=== PATIENT | female | born 1960 | race Caucasian/White ===

== ENCOUNTER 2018-02-06 07:27 | Day surgery (SDC) | payer MEDICARE ==
[2018-02-06] MEDS ORDERED: NA CHLORIDE 0.9% 500 ML ONE (08:38)
--- OUTSIDE RECORDS SUMMARY | 2018-02-06 09:06 | XMS REPORT | Clinical Summary ---
:1960 Author Organization [facility] Address [address] [place] [address] Phone Care Team Providers Name Role Phone Unavailable Primary Care Provider Unavailable Allergies No Known Allergies Current Medications Prescription Sig. Disp. Refills Start Date End Date Status exemestane (AROMASIN) 25 mg Take 25 mg by Active tabletIndications: prevention mouth daily. of breast cancer in high risk women venlafaxine (EFFEXOR) 75 MG Take 75 mg by Active tablet mouth daily. ondansetron (ZOFRAN) 4 MG Take 4 mg by Active tablet mouth 2 (two) times daily as needed for Nausea. capecitabine (XELODA) 500 MG Take by mouth 2 Active tablet (two) times daily. pravastatin (PRAVACHOL) 40 MG Take 40 mg by Active tablet mouth daily. meloxicam (MOBIC) 7.5 MG Take 7.5 mg by Active tablet mouth daily. pantoprazole (PROTONIX) 40 MG Take 40 mg by Active tablet mouth daily. hydrochlorothiazide Take 12.5 mg by Active (HYDRODIURIL) 12.5 MG tablet mouth daily. 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
[2018-02-06 09:07] VITALS: BMI 23.3
[2018-02-06 13:21] VITALS: BP 143/67; TEMP 97.9; O2SAT 99
[2018-02-06 15:20] LABS: Hematocrit 30.3 % (36.0-45.0)
== END 2018-02-06 15:05 | disposition home or self-care (01) ==
LOC: DS 07:27
PROVIDERS: ATTEND Internal Medicine Medical Oncology
PROC: 30233N1 Transfusion of Nonautologous Red Blood Cells into Peripheral Vein, Percutaneous Approach (ICD-10-PCS; principal; 2018-02-06)
DX: C50.919 Malignant neoplasm of unspecified site of unspecified female breast (principal); D63.0 Anemia in neoplastic disease
CPT/HCPCS: 36415; 36430; 85014; 85018; 86850; 86900; 86901; P9016 ×2

== ENCOUNTER 2018-03-05 18:17 | Emergency (ER) | payer MEDICARE ==
--- OUTSIDE RECORDS SUMMARY | 2018-03-05 18:21 | XMS REPORT | Clinical Summary ---
:1960 Author Organization [facility] Address [address] [place] [address] Phone Care Team Providers Name Role Phone [...] Not on file Results Not on fileafter 03/04/2017
[2018-03-05] MEDS ORDERED: IPRATROPIUM BROM 0.5MG/2.5ML ONE (19:17)
[2018-03-05] MEDS ORDERED: ALBUTEROL 2.5 MG/3 ML NEB SOL ONE (19:17)
--- NOTE | 2018-03-05 20:16 | RAD REPORT ---
EXAM DESCRIPTION: RAD - Chest Pa And Lat (2 Views) - 03/05/2018 8:07 pm CLINICAL HISTORY: SOB Chest pain. COMPARISON: Chest Single View dated 06/27/2017; Chest Single View dated 01/04/2017; Chest Single View dated 09/12/2016; Chest Single View dated 06/09/2016Chest Single View dated 06/27/2017; Chest Single V iew dated 01/04/2017; Chest Single View dated 09/12/2016; Chest Single View dated 06/09/2016; Chest Abdo men Pelvis W Cont dated 04/10/2017 FINDINGS: A small to moderate right pleural effusion is suspected. Mild interstitial pulmonary edema is present. The heart is mildly enlarged in size. Extensive blastic osseous metastatic disease noted .
[2018-03-05] MEDS ORDERED: FENTANYL CITR 100 MCG/2 ML ONE (20:17)
[2018-03-05 20:32] LABS: Protime INR 1.23
[2018-03-05 20:50] LABS: ALT/SGPT 54 U/L (12-78); AST/SGOT 297 U/L (15-37); Albumin 2.1 g/dL (3.4-5.0); Alkaline Phosphatase 1097 U/L (45-117); BUN Blood Urea Nitrogen 11 mg/dL (7-18); Bicarbonate 26 mmol/L (21-32); Bilirubin Direct 0.9 mg/dL (0-0.2); Bilirubin Total 1.3 mg/dL (0.2-1.0); CKMB Creatine Kinase MB < 1.0 ng/mL (0.3-3.6); Creatine Phosphokinase 51 U/L (26-192); Glucose Level 113 mg/dL (74-106); Magnesium 1.7 mg/dL (1.8-2.4); NT PRO-BNP 466 pg/mL (<125); Potassium 3.7 mmol/L (3.5-5.1); Sodium Level 135 mmol/L (136-145)
[2018-03-05 20:59] LABS: Absolute Lymphocytes (CBC) 1.8 K/uL (0.7-4.9); Absolute Monocytes 0.6 K/uL (0.1-1.3); Basophils % 1.2 % (0-1.3); Eosinophils % 1.5 % (0-4.4); Hematocrit 25.1 % (36.0-45.0); Lymphocytes % 40.1 % (15.3-44.8); MCH 30.9 pg (27.0-35.0); MCV 92.6 fL (80-100); MPV 7.6 fL (7.6-11.3); Monocytes % 12.7 % (3.3-12.3); RBC Red Blood Cell Count 2.71 M/uL (3.86-4.86)
[2018-03-05 21:39] LABS: Platelet Estimate DECR; Urine White Blood Cell Casts DIFF
[2018-03-05 21:43] LABS: Anisocytosis 2+; Blood Morphology Comment NOTED (NOT SEEN); Polychromasia 1+
--- NOTE | 2018-03-05 22:00 | RAD REPORT ---
EXAM DESCRIPTION: CT - Chest For Pe Angio - 03/05/2018 9:49 pm CLINICAL HISTORY: Chest pain. SOB COMPARISON: Thorax W/ Con dated 04/01/2016Thorax W/ Con dated 04/01/2016; Thorax W/ Con dated 6 TECHNIQUE: CT angiogram of the pulmonary arteries was performed with MIP. All CT scans are performed using dose optimization technique as appropriate and may include automated exposure control or mA/KV adjustment according to patient size. FINDINGS: No evidence of pulmonary thromboembolism. No acute aortic finding demonstrated. Interstitial prominence bilaterally likely indicates mild interstitial pulmonary edema or interstitia l pneumonia. Moderate bilateral pleural effusions noted. An enlarged lymph node is noted in the AP window region m easuring 10 mm. Extensive blastic bony metastasis. Prominent fatty liver is present with multiple liver metastases ponce spected. IMPRESSION: No evidence of pulmonary thromboembolism. Moderate bilateral pleural effusions with mild interstitial pulmonary edema versus interstitial pneum onia. Extensive bony metastatic disease. Incompletely assessed liver metastatic disease also noted.
[2018-03-05] MEDS ORDERED: CEFTRIAXONE/SWI 1gm 1 GM/10 ML SYR ONE (22:21)
[2018-03-05] MEDS ORDERED: FUROSEMIDE 20 MG/ 2ML VIAL ONE (22:21)
[2018-03-05 22:25] LABS: Urine Blood NEGATIVE (NEG); Urine Glucose NEGATIVE (NEG); Urine Protein NEGATIVE (NEG); Urine Specific Gravity <1.005 (1.005-1.030)
[2018-03-05] MEDS ORDERED: HYDROCODONE/APAP 5/325 MG TAB ONE (22:32)
[2018-03-05 22:58] LABS: Urine Bacteria >50 /HPF (<20); Urine Culture Reflex Order REFLEXED; Urine RBC NONE SEEN /HPF (NONE SEEN)
--- NOTE | 2018-03-05 22:58 | ER ---
Nurse's Notes [facility] Name: Kailee Lyle Age: 57 yrs Sex: Female : 1960 Arrival Date: 03/05/2018 Time: 18:20 Bed 7 Private MD: Diagnosis: Shortness of breath;Weakness-General;Urinary tract infection, site not specified;Bandemia Presentation: 03/05 18:25 Presenting complaint: Patient states: i just cant breathe good and not feeling good; hj denies nausea and vomiting, reports fever; history of brain ca; pt on hospice;. Transition of care: patient was not received from another setting of care. Onset of symptoms was March 05, 2018. Risk Assessment: Do you want to hurt yourself or someone else? Patient reports no desire to harm self or others. Initial Sepsis Screen: Does the patient meet any 2 criteria? No. Patient's initial sepsis screen is negative. Does the patient have a suspected source of infection? No. Patient's initial sepsis screen is negative. Care prior to arrival: None. 18:25 Method Of Arrival: Ambulatory 18:25 Acuity: JOANNE 3 hj Triage Assessment: 18:28 General: Appears in no apparent distress. uncomfortable, Behavior is calm, cooperative, hj appropriate for age. Pain: Denies pain. Historical: - Allergies: 18:27 NKA; hj - Home Meds: 18:27 hydrocodone-acetaminophen 5-325 mg Oral tab 1 tab every 6 hours [Active]; morphine 15 hj mg Oral tab 1 tab every 4 hours [Active]; pantoprazole 40 mg Oral grps 1 tab 2 times per day [Active]; venlafaxine 75 mg Oral tab 1 tab once daily. [Active]; - PMHx: 18:27 Brain CA; Cancer, Bone; Cancer, Breast; hernia to right side; Hyperlipidemia; hj Hypertension; - PSHx: 18:27 Mastectomy, Right; Cholecystectomy; hj - Immunization history:: Adult Immunizations up to date. - Social history:: Smoking status: Patient/guardian denies using tobacco, Patient/guardian denies using alcohol. - Ebola Screening: : Patient negative for fever greater than or equal to 101.5 degrees Fahrenheit, and additional compatible Ebola Virus Disease symptoms Patient denies exposure to infectious person Patient denies travel to an Ebola-affected area in the 21 days before illness onset. Screenin:28 Abuse screen: Denies threats or abuse. Denies injuries from another. Nutritional hj screening: No deficits noted. Tuberculosis screening: No symptoms or risk factors identified. Fall Risk None identified. Assessment: 18:38 General: Appears comfortable, slender, Behavior is calm, cooperative, quiet. Pain: ae1 Denies pain. Neuro: Level of Consciousness is awake, alert, obeys commands, Oriented to person, place, time, situation. Neuro: Reports dizziness. Cardiovascular: Heart tones S1 S2 present Patient's skin is warm and dry. Rhythm is regular. Respiratory: Airway is patent Respiratory effort is even, unlabored, Respiratory pattern is regular, symmetrical, Breath sounds are clear bilaterally. GI: Abdomen is round Bowel sounds present X 4 quads. Abd is soft and non tender. : No signs and/or symptoms were reported regarding the genitourinary system. EENT: wears glasses. Derm: Skin is pale. Musculoskeletal: Reports Generalized weakness. 19:00 General: Appears comfortable, Behavior is calm, cooperative. Pain: Denies pain. Neuro: ae1 Level of Consciousness is awake, alert, obeys commands, Oriented to person, place, time, situation, Reports dizziness, weakness generalized. Cardiovascular: Heart tones S1 S2 present Patient's skin is warm and dry. Respiratory: Airway is patent Respiratory effort is even, unlabored, Respiratory pattern is regular, symmetrical, Breath sounds are clear bilaterally. GI: Abdomen is round Bowel sounds present X 4 quads. Abd is soft and non tender X 4 quads. : No signs and/or symptoms were reported regarding the genitourinary system. Derm: Skin is dry, Skin is pale, Skin temperature is warm. Musculoskeletal: Reports generalized weakness. 20:55 Reassessment: Patient and/or family updated on plan of care and expected duration. Pain ea level reassessed. Patient is alert, oriented x 3, equal unlabored respirations, skin warm/dry/pink. 22:27 Reassessment: Spoke with [facility] nurse at [phone] and explained reason why pt fc was here and her options of admission vs going home. She states that pt will not be removed from Hospice for being admitted. Explained this to pt and family. Pt wishes to be discharged tonight. Page PA notified. 22:30 Reassessment: Patient and/or family updated on plan of care and expected duration. Pain ea level reassessed. Patient is alert, oriented x 3, equal unlabored respirations, skin warm/dry/pink. family at bedside. 22:48 Reassessment: Tammy with [facility] notified that pt wants to be discharge and have fc antibiotics at home. Neel DOWLING gave orders for Augmentin 875 mg po bid x 7 days to tammy RN so that they could be ordered and dropped at pts home in the am. Tammy RN asks that pts family notify her when they get home tonight. I will let them know. Vital Signs: 18:29 BP 90 / 51; Pulse 115; Resp 18; Temp 97.8(TE); Pulse Ox 96% on R/A; Weight 50.8 kg; hj Height 5 ft. 4 in. (162.56 cm); Pain 0/10; 18:46 BP 107 / 69 Supine; Pulse 95; Resp 16; Pulse Ox 94% on R/A; ae1 18:48 BP 116 / 84 Sitting; Pulse 101; Resp 17; Pulse Ox 95% on R/A; ae1 18:50 BP 118 / 94; ae1 19:00 BP 112 / 65; Pulse 98; Resp 18; Pulse Ox 97% on R/A; Pain 0/10; ae1 20:55 BP 110 / 55; Pulse 98; Resp 18; Pulse Ox 97% on R/A; ea 22:55 BP 114 / 63; Pulse 88; Resp 18; Temp 97.7(O); Pulse Ox 98% on R/A; Pain 0/10; ea 18:29 Body Mass Index 19.22 (50.80 kg, 162.56 cm) hj 18:50 Patient states she is too weak to stand and immediatley sat on bed. ae1 ED Course: 18:20 Patient arrived in ED. rg4 18:26 Triage completed. hj 18:28 Arm band placed on right wrist. hj 18:28 Patient has correct armband on for positive identification. Placed in gown. Bed in low hj position. Call light in reach. Side rails up X 1. Adult w/ patient. 18:36 [facility] Washburn [facility]. cp 18:36 Jacky Klein MD is Attending Physician. cp 19:29 Elbert Danielson MIRIAM is Primary Nurse. ae1 19:35 Inserted saline lock: 22 gauge in left antecubital area, using aseptic technique. Blood ea collected. 20:07 XRAY Chest Pa And Lat (2 Views) In Process Unspecified. EDMS 20:43 Notified Nurse Practitioner and/or Physician Manager Operations And Procurement of a critical lab result(s), fc lactate of 3.7. 20:[address] vr 21:49 CT Chest For PE Angio In Process Unspecified. EDMS 22:58 No provider procedures requiring assistance completed. ea 23:05 IV discontinued, intact, bleeding controlled, No redness/swelling at site. Pressure ea dressing applied. Administered Medications: 19:08 Drug: Albuterol 2.5 mg Route: Inhalation; ae1 19:08 Drug: AtroVENT Aerosol 0.5 mg Route: Inhalation; ae1 20:26 Drug: fentaNYL (PF) 25 mcg Route: IVP; Site: left antecubital; ea 21:00 Follow up: Response: No adverse reaction ea 22:20 Drug: Lasix 20 mg Route: IVP; Site: left antecubital; ea 22:58 Follow up: Response: No adverse reaction; Marked relief of symptoms ea 22:26 Drug: Rocephin - (cefTRIAXone) 1 grams Route: IVPB; Infused Over: 30 mins; Site: left ea antecubital; 23:00 Follow up: Response: No adverse reaction; IV Status: Completed infusion ea 22:31 Drug: [place] 5 mg-325 mg 1 tabs Route: PO; ea 22:58 Follow up: Response: No adverse reaction; Pain is decreased ea Outcome: 22:57 Discharge ordered by MD. herbert 23:09 Discharged to home via wheelchair, with friend, Instructed to call hospice as soon as ea they arrived home. 23:09 Condition: improved 23:09 Discharge instructions given to patient, Instructed on discharge instructions, follow up and referral plans. medication usage, Demonstrated understanding of instructions, follow-up care, medications, Prescriptions given X 1. 23:13 Patient left the ED. ea Addendum: 03/09/2018 08:13 Addendum: Culture Results: Positive urine culture. Positive blood culture. No further i w action required. Bacteria sensitive to prescribed antibiotic. Signatures: Dispatcher [employer] EDTX Chretien, Eleni, RN Liane Haider RN RN iw Davis, Victoria vr Joaquin, Henry, RN RN hj Page, Corey, PA PA cp Elliott, Andrea, MIRIAM RN aeNelsy Roberto 4 Symone Garduno RN RN ea Corrections: (The following items were deleted from the chart) 03/05 18:28 18:25 Presenting complaint: Patient states: i just cant breathe good and not feeling hj good; denies nausea and vomiting, reports fever; hj 18:31 18:29 Pulse 102bpm; Resp 18bpm; Pulse Ox 96% RA; Temp 97.8F Temporal; 50.8 kg; Height 5 hj ft. 4 in.; BMI: 19.2; Pain 0/10; hj 18:31 18:29 BP 90 / 51; Pulse 102bpm; Resp 18bpm; Pulse Ox 96% RA; Temp 97.8F Temporal; 50.8 hj kg; Height 5 ft. 4 in.; BMI: 19.2; Pain 0/10; hj
--- NOTE | 2018-03-05 22:58 | EDPHYS ---
Physician Documentation [facility] Name: Kailee Lyle Age: 57 yrs Sex: Female : 1960 Arrival Date: 03/05/2018 Time: 18:20 Bed 7 Private MD: ED Physician Jacky Klein HPI: 03/05 18:47 This 57 yrs old Female presents to ER via Ambulatory with complaints of NOT cp FEELING WELL. 18:47 The patient has shortness of breath with light activity. Onset: The symptoms/episode cp began/occurred gradually, and became worse today. 18:47 Duration: The symptoms are continuous, and are steadily getting worse. Associated signs cp and symptoms: Pertinent positives: general weakness, Pertinent negatives: chest pain, productive cough, fever, hemoptysis, vomiting. Severity of symptoms: in the emergency department the symptoms are unchanged despite home interventions. Historical: - Allergies: 18:27 NKA; hj - Home Meds: 18:27 hydrocodone-acetaminophen 5-325 mg Oral tab 1 tab every 6 hours [Active]; morphine 15 hj mg Oral tab 1 tab every 4 hours [Active]; pantoprazole 40 mg Oral grps 1 tab 2 times per day [Active]; venlafaxine 75 mg Oral tab 1 tab once daily. [Active]; - PMHx: 18:27 Brain CA; Cancer, Bone; Cancer, Breast; hernia to right side; Hyperlipidemia; hj Hypertension; - PSHx: 18:27 Mastectomy, Right; Cholecystectomy; hj - Immunization history:: Adult Immunizations up to date. - Social history:: Smoking status: Patient/guardian denies using tobacco, Patient/guardian denies using alcohol. - Ebola Screening: : Patient negative for fever greater than or equal to 101.5 degrees Fahrenheit, and additional compatible Ebola Virus Disease symptoms Patient denies exposure to infectious person Patient denies travel to an Ebola-affected area in the 21 days before illness onset. ROS: 18:50 Constitutional: Negative for body aches, chills, fever, poor PO intake. cp 18:50 Eyes: Negative for injury, pain, redness, and discharge. cp 18:50 ENT: Negative for drainage from ear(s), ear pain, sore throat, difficulty swallowing, difficulty handling secretions. 18:50 Neck: Negative for pain with movement, pain at rest, stiffness. 18:50 Cardiovascular: Negative for chest pain, edema, palpitations. 18:50 Respiratory: Positive for shortness of breath, on exertion. Negative for cough, hemoptysis, wheezing. 18:50 Abdomen/GI: Negative for abdominal pain, nausea, vomiting, and diarrhea, constipation, anorexia, black/tarry stool, rectal bleeding. 18:50 Back: Negative for pain at rest, pain with movement, radiated pain. 18:50 : Negative for urinary symptoms. 18:50 Skin: Negative for cellulitis, diaphoresis, rash. 18:50 Neuro: Positive for general weakness, Negative for altered mental status, dizziness, headache, syncope, near syncope. 18:50 All other systems are negative. Exam: 18:58 Constitutional: The patient appears in no acute distress, alert, awake, cp non-diaphoretic, non-toxic, well developed, frail. 18:58 Head/Face: Normocephalic, atraumatic. Eyes: Pupils equal round and reactive to light, cp extra-ocular motions intact. Lids and lashes normal. Conjunctiva and sclera are non-icteric and not injected. Cornea within normal limits. Periorbital areas with no swelling, redness, or edema. ENT: Nares patent. No nasal discharge, no septal abnormalities noted. Tympanic membranes are normal and external auditory canals are clear. Oropharynx with no redness, swelling, or masses, exudates, or evidence of obstruction, uvula midline. Mucous membranes moist. Neck: Trachea midline, no thyromegaly or masses palpated, and no cervical lymphadenopathy. Supple, full range of motion without nuchal rigidity, or vertebral point tenderness. No Meningismus. Chest/axilla: Normal chest wall appearance and motion. Nontender with no deformity. No lesions are appreciated. 18:58 Cardiovascular: Rate: tachycardic, Rhythm: regular, Edema: is not appreciated, JVD: is not appreciated. 18:58 Respiratory: the patient does not display signs of respiratory distress, Respirations: normal, no use of accessory muscles, no retractions, no splinting, no tachypnea, labored breathing, is not present, Breath sounds: decreased breath sounds, that are mild, are located in both bases, stridor, is not appreciated, wheezing: is not appreciated. 18:58 Abdomen/GI: Inspection: abdomen appears normal, Bowel sounds: active, all quadrants, Palpation: abdomen is soft and non-tender, in all quadrants, rebound tenderness, is not appreciated, voluntary guarding, is not appreciated, involuntary guarding, is not appreciated. 18:58 Back: pain, is absent, ROM is normal, CVA tenderness, is absent. 18:58 Musculoskeletal/extremity: Exam is negative for bony tenderness, calf tenderness, decreased range of motion, deformity, edema, injury. 18:58 Skin: cellulitis, is not appreciated, no rash present. 18:58 Neuro: Cerebellar function: Romberg testing is negative, Motor: moves all fours, general weakness w/o focal deficits, Sensation: no obvious gross deficits. 19:30 ECG was reviewed by the Attending Physician. cp Vital Signs: 18:29 BP 90 / 51; Pulse 115; Resp 18; Temp 97.8(TE); Pulse Ox 96% on R/A; Weight 50.8 kg; hj Height 5 ft. 4 in. (162.56 cm); Pain 0/10; 18:46 BP 107 / 69 Supine; Pulse 95; Resp 16; Pulse Ox 94% on R/A; ae1 18:48 BP 116 / 84 Sitting; Pulse 101; Resp 17; Pulse Ox 95% on R/A; ae1 18:50 BP 118 / 94; ae1 19:00 BP 112 / 65; Pulse 98; Resp 18; Pulse Ox 97% on R/A; Pain 0/10; ae1 20:55 BP 110 / 55; Pulse 98; Resp 18; Pulse Ox 97% on R/A; ea 22:55 BP 114 / 63; Pulse 88; Resp 18; Temp 97.7(O); Pulse Ox 98% on R/A; Pain 0/10; ea 18:29 Body Mass Index 19.22 (50.80 kg, 162.56 cm) hj 18:50 Patient states she is too weak to stand and immediatley sat on bed. ae1 MDM: 18:41 Patient medically screened. cp 20:00 Differential diagnosis: Bronchitis CHF exacerbation, Chronic Obstructive Pulmonary cp Disease Myocardial Infarction pneumonia, Pneumothorax pulmonary edema, Pulmonary Embolism Sepsis Unstable Angina. 22:55 Data reviewed: vital signs, nurses notes, lab test result(s), EKG, radiologic studies, cp CT scan, plain films. Test interpretation: by ED physician or midlevel provider: ECG, plain radiologic studies. 22:55 Counseling: I had a detailed discussion with the patient and/or guardian regarding: the cp historical points, exam findings, and any diagnostic results supporting the discharge/admit diagnosis, lab results, radiology results. ED course: VSS. Discussed results of labs and radiology studies. Patient is currently on home hospice and requests to be discharged to home to continue care. Will return worsening symptoms. 03/05 19:05 Order name: Urine Microscopic Only cp 03/05 19:05 Order name: Blood Culture Adult (2) cp 03/05 19:05 Order name: CBC with Diff; Complete Time: 22:01 cp 03/05 22:02 Interpretation: Normal except: RBC 2.71; HGB 8.4; HCT 25.1; MCV 92.6; PLT 66; RDW 19.3; cp MN% 12.7. 03/05 19:05 Order name: CMP; Complete Time: 20:51 cp 03/05 20:52 Interpretation: Normal except: NA 135; GLUC 113; GFR 74; AST 297; ALK 1097; BILIT 1.3; cp TP 6.0; ALB 2.1. 03/05 19:05 Order name: Ckmb; Complete Time: 20:51 cp 03/05 19:05 Order name: CPK; Complete Time: 20:51 cp 03/05 19:05 Order name: LFT's; Complete Time: 20:51 cp 03/05 19:05 Order name: Magnesium; Complete Time: 20:51 cp 03/05 19:05 Order name: NT PRO-BNP; Complete Time: 20:51 cp 03/05 20:52 Interpretation: Abnormal: NT PRO-BNP 466. cp 03/05 19:05 Order name: PT-INR; Complete Time: 20:45 cp 03/05 19:05 Order name: Ptt, Activated; Complete Time: 20:45 cp 03/05 19:05 Order name: Troponin (emerg Dept Use Only); Complete Time: 20:45 cp 03/05 19:05 Order name: Lactate; Complete Time: 20:45 cp 03/05 20:45 Interpretation: Abnormal: LAC 3.7. cp 03/05 18:41 Order name: Orthostatics; Complete Time: 18:58 cp 03/05 19:05 Order name: Urine Dipstick-Ancillary (obtain specimen); Complete Time: 21:59 cp 03/05 19:05 Order name: XRAY Chest Pa And Lat (2 Views); Complete Time: 20:20 03/05 19:05 Order name: EKG; Complete Time: 19:05 03/05 19:05 Order name: Procalcitonin; Complete Time: 20:51 03/05 20:53 Order name: CT Chest For PE Angio; Complete Time: 22:01 03/05 21:21 Order name: CBC Smear Scan [facility] 03/05 21:39 Order name: Manual Differential; Complete Time: 22:01 [facility] 03/05 22:02 Interpretation: Normal except: BANDS [F] 8; BASOS 2; META 2. 03/05 22:03 Order name: Urine Dipstick--Ancillary (enter results) 03/05 22:59 Order name: Urine Culture [facility] 03/05 19:05 Order name: Urine Test (obtain specimen); Complete Time: 21:59 03/05 19:05 Order name: Cardiac monitoring; Complete Time: 19:30 03/05 19:05 Order name: EKG - Nurse/Tech; Complete Time: 19:30 03/05 19:05 Order name: IV Saline Lock; Complete Time: 20:10 03/05 19:05 Order name: Labs collected and sent; Complete Time: 20:10 03/05 19:05 Order name: O2 Per Protocol; Complete Time: 20:10 03/05 19:05 Order name: O2 Sat Monitoring; Complete Time: 20:10 cp EC:30 Rate is 95 beats/min. Rhythm is regular. NC interval is normal. QRS interval is normal. cp QT interval is normal. No ST changes noted. Interpreted by me. Reviewed by me. Administered Medications: 19:08 Drug: Albuterol 2.5 mg Route: Inhalation; ae1 19: Drug: AtroVENT Aerosol 0.5 mg Route: Inhalation; ae1 : Drug: fentaNYL (PF) 25 mcg Route: IVP; Site: left antecubital; ea 21:00 Follow up: Response: No adverse reaction ea 22:20 Drug: Lasix 20 mg Route: IVP; Site: left antecubital; ea 22:58 Follow up: Response: No adverse reaction; Marked relief of symptoms ea 22:26 Drug: Rocephin - (cefTRIAXone) 1 grams Route: IVPB; Infused Over: 30 mins; Site: left ea antecubital; 23:00 Follow up: Response: No adverse reaction; IV Status: Completed infusion ea 22:31 Drug: [place] 5 mg-325 mg 1 tabs Route: PO; ea 22:58 Follow up: Response: No adverse reaction; Pain is decreased ea Disposition: 03/05/18 22:57 Discharged to Home. Impression: Shortness of breath, Weakness - General, Urinary tract infection, site not specified, Bandemia. - Condition is Stable. - Discharge Instructions: Shortness of Breath, Urinary Tract Infection, Adult. - Prescriptions for Augmentin 875- 125 mg Oral Tablet - take 1 tablet by ORAL route every 12 hours for 10 days; 20 tablet. - Medication Reconciliation Form, Thank You Letter, Antibiotic Education, Prescription Opioid Use form. - Follow up: Private Physician; When: Tomorrow; Reason: Recheck today's complaints. - Problem is new. - Symptoms have improved. Addendum: 03/16/2018 07:22 Co-signature as Attending Physician, Jacky Klein MD I agree with the assessment and k dr plan of care. Signatures: Dispatcher [employer] [facility] Jacky Klein MD MD kdr Joaquin, Henry, RN RN Neel Samson PA PA cp Elbert Danielson RN RN ae1 Symone Garduno RN RN ea Corrections: (The following items were deleted from the chart) 03/05 19:07 19:05 BASIC METABOLIC PANEL+[id number].LAB.BRZ ordered. [facility] 22:58 22:57 03/05/2018 22:57 Discharged to Home. Impression: Shortness of breath; Weakness - cp General; Urinary tract infection, site not specified. Condition is Stable. Forms are Medication Reconciliation Form, Thank You Letter, Antibiotic Education, Prescription Opioid Use. Follow up: Private Physician; When: Tomorrow; Reason: Recheck today's complaints. Problem is new. Symptoms have improved. cp 23:13 22:58 03/05/2018 22:57 Discharged to Home. Impression: Shortness of breath; Weakness - ea General; Urinary tract infection, site not specified; Bandemia. Condition is Stable. Discharge Instructions: Shortness of Breath, Urinary Tract Infection, Adult. Prescriptions for Augmentin 875-125 mg Oral Tablet - take 1 tablet by ORAL route every 12 hours for 10 days; 20 tablet. and Forms are Medication Reconciliation Form, Thank You Letter, Antibiotic Education, Prescription Opioid Use. Follow up: Private Physician; When: Tomorrow; Reason: Recheck today's complaints. Problem is new. Symptoms have improved. cp
[2018-03-05 23:32] VITALS: BP 114/63; TEMP 97.7; O2SAT 98
--- NOTE | 2018-03-06 09:21 | EKG ---
Test Date: 2018-03-05 Test Time: 19:23:40 [employer]: MARCOS MEASUREMENT RESULTS: Intervals: Rate: 95 NV: 118 QRSD: 90 QT: 348 QTc: 437 [place]: P: 70 NV: 118 QRS: -41 T: 79 INTERPRETIVE STATEMENTS: Normal sinus rhythm Left axis deviation Abnormal ECG Compared to ECG 06/27/2017 16:58:50 Left-axis deviation now present Sinus tachycardia no longer present Left anterior fascicular block no longer present Electronically Signed On 03-06-18 07:33:30 CDT by Alexandro Swan
== END 2018-03-05 23:13 | disposition home or self-care (01) ==
LOC: ER 18:17
DX: R06.00 Dyspnea, unspecified (principal); N39.0 Urinary tract infection, site not specified; R53.1 Weakness; D72.825 Bandemia; I10 Essential (primary) hypertension; E78.5 Hyperlipidemia, unspecified
CPT/HCPCS: 36415; 71046; 71275; 80053; 82248; 82550; 82553; 83605; 83735; 83880; 84145; 84484; 85025; 85610; 85730; 87040; 87077 ×2; 87086; 87088; 87186 ×2; 87205; 93005; 96365; 96375; 99285; J0696; J1940; J3010; Q9967; 81003; 81015